=== PATIENT | male | born 1990 | race African-American/Black ===

== ENCOUNTER 2025-05-07 12:56 | Outpatient (REF) | payer OTHER, SELFPAY ==
[2025-05-07 15:11] LABS: Hematocrit 44.3 % (42.0-52.0); Hemoglobin 14.5 g/dl (14.0-18.0); Mean Corpuscular HGB Conc 32.7 g/dl (31.0-36.0); Mean Corpuscular Hemoglobin 27.2 pg (27.0-33.0); Mean Corpuscular Volume 83.0 fL (80.0-98.0); NRBC Abs Auto 0.000 X10*3/uL (0.0-0.012); NRBC Pct Auto 0.0 /100WBC (0.0-0.2); Platelet Count 272 X10*3/uL (160-400); Red Blood Count 5.34 X10*6/uL (4.60-5.80); White Blood Count 5.5 X10*3/uL (4.8-10.8)
[2025-05-07 15:59] LABS: Alanine Aminotransferase 46 U/L (0-40); Albumin Level 5.0 g/dL (3.5-5.0); Alkaline Phosphatase 122 U/L (39-117); Anion Gap 12 (12-20); Aspartate Amino Transferase 33 U/L (5-37); Blood Urea Nitrogen 10 mg/dL (9-16); Calcium 9.2 mg/dL (8.4-10.2); Carbon Dioxide 25 mmol/L (22-29); Chloride 108 mmol/L (96-108); Cholesterol 231 mg/dL (<200); Estimated Glomerular Filt Rate > 60; HDL Cholesterol 35 mg/dL (>40); Potassium 4.1 mmol/L (3.3-5.1); Sodium 141 mmol/L (135-145); Total Protein 8.1 g/dL (6.5-8.0); Triglycerides 125 mg/dL (<150)
== END 2025-05-07 12:57 | disposition home or self-care (01) ==
LOC: HO.LAB 12:56
PROVIDERS: PCP Internal Medicine; Visit Provider Internal Medicine
DX: Z00.00 Encounter for general adult medical examination without abnormal findings (principal); K21.9 Gastro-esophageal reflux disease without esophagitis; G43.909 Migraine, unspecified, not intractable, without status migrainosus; L72.3 Sebaceous cyst; I10 Essential (primary) hypertension; R53.82 Chronic fatigue, unspecified
CPT/HCPCS: 36415; 80053; 80061; 82306; 83036; 84443; 85027

== ENCOUNTER 2025-05-07 12:56 | Outpatient (AMB) | payer OTHER, SELFPAY ==
--- NOTE | 2025-05-07 13:00 | A.OFFPC_ITS ---
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 Allergies No Known Allergies Allergy (Verified 05/07/25 13:03) Medication List - Last Reconciled 05/07/25 by Zora Deluca MD acetaminophen (Tylenol) 325 mg PO Q6H PRN acetaminophen-caffeine 500-65 mg (Excedrin Tension Headache) 1 tab PO Q12H PRN Tobacco use date assessed: 05/07/25 Dental Screening Dental Screen Date: 05/07/25 Did you have a dental visit in the last 12 months?: No Did you have a dental problem in the last 6 months where you did not have access to dental care?: No Was dental information given to patient?: Patient declined HPI HPI Comments History of Present Illness Details The patient is a 34-year-old individual presenting to count includes the [facility] care after recently moving to [place]. The patient reports headaches, which the patient manages with Excedrin, and notes high caffeine consumption. The patient also reports significant fatigue and uses energy drinks. There is a history of thyroid-stimulating hormone (TSH) levels being at the lower limits of normal, which then dropped below normal over the past two years. A thyroid ultrasound showed normal structure and blood supply, but T3 and T4 levels were not checked. Since moving to the about five years ago, the patient has experienced recurrent cysts under the arms, which the patient attributes to certain deodorants. The patient has a draining lesion currently, raising concerns about a possible fistula. This issue began after a rapid 60-pound weight gain upon arrival in the . The patient also reports a history of acne during youth and had bumps in the groin area in the past that have since resolved. The patient's had a positive HPV test after an abnormal Pap smear, despite having received the quadrivalent HPV vaccine in the past. The patient has never been vaccinated for HPV and is interested in receiving it due to this exposure, although the patient denies any related symptoms such as warts or lesions. The patient experiences acid reflux and bloating. Family history is significant for a father with hypertension and prediabetes, both of which are controlled with lifestyle modifications. There is no family history of colon, prostate, or lung cancer. [facility] Social History Housing: House Patient Tobacco Use Status: Never used Tobacco e-Cigarette/Vaping Use: Never Used service: No Current occupational status: unemployed Questionnaire PHQ-9 Over the last 2 weeks, how often have you been bothered by any of the following problems? 1. Little interest or pleasure in doing things: not at all 2. Feeling down, depressed, or hopeless: not at all 3. Trouble falling or staying asleep, or sleeping too much: not at all 4. Feeling tired or having little energy: not at all 5. Poor appetite or overeating: not at all 6. Feeling bad about yourself - or that you are a failure or have let yourself or your family down: not at all 7. Trouble concentrating on things, such as reading the newspaper or watching television: not at all 8. Moving or speaking so slowly that other people could have noticed. Or the opposite - being so fidgety or restless that you have been moving around a lot more than usual: not at all 9. Thoughts that you would be better off or of hurting yourself in some way: not at all Total score: 0 Source: Developed by Drs. Jose Morley, Jailene Cid, Shai Caicedo and colleagues, with an educational stephen from [employer]. Thrive Questionnaire Date Thrive assessed: 04/30/25 I am a: Patient What is your living situation today?: I have a steady place to live Within the past 12 months, did the food you bought not last and you didn't have the money to get more?: Never true Within the past 12 months, did you worry whether your food would run out before you got money to buy more?: Never true Do you have trouble paying for medicines?: No Do you have trouble getting transportation to medical appointments?: No Do you have trouble paying your heating and electricity bill?: No Do you have trouble taking care of your child, family member or friend?: No Do you have trouble with day-to-day activities such as bathing, preparing meals, shopping, managing finances, etc.?: No Are you currently unemployed and looking for a job?: No Are you interested in more education?: No Please select the resources that you would like help with: None Currently or been in a relationship where the following occur: No concerns reported THRIVE Score: 0 AUDIT C Alcohol Use Questionnaire (AUDIT-C) 1. How often do you have a drink containing alcohol?: Monthly or less 2. How many drinks containing alcohol do you have on a typical day when you are drinking?: 1 or 2 3. How often do you have six or more drinks on one occasion?: Never Total Score: 1 MANUEL-7 AMB Questionnaire MANUEL-7 Date MANUEL - 7 assessed: 05/07/25 Feeling nervous, anxious, or on edge: 0 = Not at all Not being able to stop or control worryin = Not at all Worrying too much about different things: 0 = Not at all Trouble relaxin = Nearly every day Being so restless that it is hard to sit still: 3 = Nearly every day Becoming easily annoyed or irritable: 1 = Several days Feeling afraid as if something awful might happen: 0 = Not at all Total MANUEL-7 score (0-4 normal; 5-9 mild; 10-14 moderate; 15-21 severe): 7 Source: Developed by Drs. Jose Morley, Jailene Cid, Shai Caicedo and colleagues, with an educational stephen from [employer]. Review of Systems Const Details: Positives besides what was mentioned in HPI are in BOLD Constitutional: No Weight Change, No Fever, No Chills, No Night Sweats, No Fatigue, No Malaise ENT/Mouth: No Hearing Changes, No Ear Pain, No Nasal Congestion, No Sinus Pain, No Hoarseness, No sore throat, No Rhinorrhea, No Swallowing Difficulty Eyes: No Eye Pain, No Swelling, No Redness, No Foreign Body, No Discharge, No Vision Changes Cardiovascular: No Chest Pain, No SOB, No PND, No Dyspnea on Exertion, No Orthopnea, No Claudication, No Edema, No Palpitations Respiratory: No Cough, No Sputum, No Wheezing, No Smoke Exposure, No Dyspnea Gastrointestinal: No Nausea, No Vomiting, No Diarrhea, No Constipation, No Pain, No Heartburn, No Anorexia, No Dysphagia, No Hematochezia, No Melena, No Flatulence, No Jaundice Genitourinary: No Dysmenorrhea, No DUB, No Dyspareunia, No Dysuria, No Urinary Frequency, No Hematuria, No Urinary Incontinence, No Urgency, No Flank Pain, No Urinary Flow Changes, No Hesitancy Musculoskeletal: No Arthralgias, No Myalgias, No Joint Swelling, No Joint Stiffness, No Back Pain, No Neck Pain, No Injury History Skin: No Skin Lesions, No Pruritis, No Hair Changes, No Breast/Skin Changes, No Nipple Discharge Neuro: No Weakness, No Numbness, No Paresthesias, No Loss of Consciousness, No Syncope, No Dizziness, No Headache, No Coordination Changes, No Recent Falls Psych: No Anxiety/Panic, No Depression, No Insomnia, No Personality Changes, No Delusions, No Rumination, No SI/HI/AH/VH, No Social Issues, No Memory Changes, No Violence/Abuse Hx., No Eating Concerns Heme/Lymph: No Bruising, No Bleeding, No Transfusions History, No Lymphadenopathy Endocrine: No Polyuria, No Polydipsia, No Temperature Intolerance Physical exam (Primary Care) Vital Signs: Last Vital Signs Pulse 91 05/07/25 13:07 Resp 18 05/07/25 13:07 BP 140/82 H 05/07/25 13:07 Pulse Ox 99 05/07/25 13:07 Oxygen Delivery Method Room Air 05/07/25 13:07 BMI result Body Mass Index 28.6 Tobacco/Smoking Status: Tobacco use Status Tobacco use date assessed 05/07/25 05/07/25 13:09 Patient Tobacco Use Status Never used Tobacco 05/07/25 13:09 e-Cigarette/Vaping Use Never Used 05/07/25 13:09 PHQ-9: PHQ-9 Score PHQ-9: Total score 0 05/07/25 15:44 Thrive Assessment: Date of Thrive Assessment Date Thrive assessed 04/30/25 05/07/25 13:09 Currently or been in a relationship where the following occur: No concerns reported Const Other: Pertinent findings are in BOLD GENERAL APPEARANCE NAD, activity normal for age, well developed/ well nourished, no cyanosis, pallor, or diaphoresis. EYES lids/conjunctiva normal. EARS/NOSE/THROAT Mucous membranes moist, nares normal, lips/teeth normal uvula midline without oral pharyngeal erythema, exudate or swelling TMs normal bilaterally. No lymphangitis/lymphedema. HEAD/NECK normocephalic atraumatic, no facial trauma, neck is supple. RESPIRATORY respiratory effort normal, speaks in full sentences, no tripod position, no accessory muscle use. Lungs clear to auscultation without rhonchi, wheezes, rales CARDIAC Regular rate and rhythm, no edema. ABDOMINAL Soft, ND/NT. No evidence of fluid wave. No pulsatile masses on exam, rebound tenderness, Michelle sign or pain over Mcburney's point. MUSCLES/EXTREMITIES No abnormal range of motion, no swelling. SKIN Warm, pink and dry. No rashes, dermatoses, petechiae or lesions. Open lesion under the patient right armpit. NEUROLOGICAL Speech is clear and appropriate. Normal level of consciousness. Gait and coordination are normal. 5/5 strength in all extremities. PSYCH Normal mood and affect. Judgement/competence is appropriate Coding Level of Care Code New Pt Level 4 (01931) New Pt Prev Care 18-39yr(05116 Diagnoses Healthcare maintenance Z00.00 Migraine without status migrainosus, not intractable, unspecified migraine type G43.909 Migraine type: unspecified Status migrainosus presence: without status migrainosus Intractability: not intractable Sebaceous cyst of axilla L72.3 Primary hypertension I10 Hypertension type: primary hypertension Chronic fatigue R53.82 Fatigue type: chronic, unspecified Time Spent (min) 45 Assessment & Plan Assessment & Plan (1) Healthcare maintenance: Code(s): Z00.00 - Encounter for general adult medical examination without abnormal findings Category: Medical Plan: CBC, CMP, Lipid panel, A1C, TSH w T4, vit D. Ordered. Shingles 2 doses when >50 yo. At 50. COVID: two doses. Completed. Pneumococcal: >50 yo. 18-49 with CKD, lung disease, weakened immune system, Heart disease, DM, cochlear implant. At 50. Flu vaccine: Completed in 2024. Tdap: every 10 years. completed in 2021. Next due in 2031. Colonoscopy: 45-75. At 45. AAA: 65 -75. NI as never smoked. CT lun - 80. NI as never smoked. PSA: 50 -70 every two years. At 50. HIV: Ordered. HCV: Ordered. (2) Migraine: Code(s): G43.909 - Migraine, unspecified, not intractable, without status migrainosus Category: Medical Qualifiers: Migraine type: unspecified Status migrainosus presence: without status migrainosus Intractability: not intractable Qualified Code(s): G43.909 - Migraine, unspecified, not intractable, without status migrainosus Plan: - Headaches managed by excedrin as needed. - Advised on lifestyle factors. (3) Sebaceous cyst of axilla: Code(s): L72.3 - Sebaceous cyst Category: Medical Plan: - The patient's axillary cysts are suspected to be a condition similar to hidradenitis suppurativa (HS), potentially linked to gut health and diet. - A referral to Dermatology will be placed for definitive diagnosis and management. - Recommended application of [id number] triple antibiotic ointment to the draining lesion and to keep it covered, allowing it to heal by secondary intention. - Advised on weight loss with dietary modifications to see if it would affect the lesion. - Advised on specific type deodorant to be used to help with managing the cyst. (4) HTN (hypertension): Code(s): I10 - Essential (primary) hypertension Category: Medical Qualifiers: Hypertension type: primary hypertension Qualified Code(s): I10 - Essential (primary) hypertension Plan: - The patient's blood pressure of 140/82 mmHg is considered borderline high and is likely multifactorial, related to stress, lack of sleep, and high caffeine intake. - Will not treat pharmacologically at this time and will focus on lifestyle modifications, including diet and weight loss, which are expected to improve blood pressure. - Plan to recheck blood pressure at a follow-up visit in three months. (5) Fatigue: Code(s): R53.83 - Other fatigue Category: Medical Qualifiers: Fatigue type: chronic, unspecified Qualified Code(s): R53.82 - Chronic fatigue, unspecified Plan: - Given the history of TSH levels dropping below normal and persistent fatigue, labs will be ordered to re-evaluate thyroid function. - Advised that dietary changes, including eliminating dairy, gluten, red meat, and sugar, may improve energy levels. Plan I discussed with the patient that the recurrent axillary cysts are likely a condition similar to hidradenitis suppurativa, which I believe is connected to diet and gut health. I recommended a trial of an elimination diet, specifically avoiding dairy, gluten, red meat, and sugars, explaining that this may improve the skin condition, fatigue, and aid in weight loss. I will place a referral to dermatology for a formal diagnosis and management. We addressed the borderline high blood pressure, attributing it to situational stress and caffeine, and agreed to monitor it with a recheck in three months rather than starting medication. I also recommended the patient obtain the HPV vaccine given the partner's status and will provide a script if needed. We will be obtaining labs today to assess thyroid function, and the patient will follow up in three months. Orders: Orders Hemoglobin A1c Today Z00.00 - Encounter for general adult medical examination without abnormal findings TSH reflex Free T4 Today Z00.00 - Encounter for general adult medical examination without abnormal findings Complete Blood Count no Diff Today Z00.00 - Encounter for general adult medical examination without abnormal findings Comprehensive Met. Panel Today Z00.00 - Encounter for general adult medical examination without abnormal findings Lipid Panel Today Z00.00 - Encounter for general adult medical examination without abnormal findings Vitamin D 25-OH Total Today Z00.00 - Encounter for general adult medical examination without abnormal findings Referrals Dermatology Referral Z00.00 - Encounter for general adult medical examination without abnormal findings
[2025-05-07 13:07] VITALS: BP 140/82; PULSE 91; RESP 18; O2SAT 99; BMI 28.6
--- OUTSIDE RECORDS SUMMARY | 2025-05-07 15:58 | XMS_ITS | Clinical Summary ---
Author Organization [facility] Address [address] [place] [id number] Phone Care Team Providers Care Garbage Man Name Role Phone Lance Canela Bam Primary Care Provider [phone] Allergies No known active allergies Medications No known medications Active Problems Problem Noted Date Diagnosed Date Obesity (BMI 30-39.9) 12/27/2023 Assessment & Plan (12/27/2023 5:54 PM EDT): Experienced a weight gain of 17 pounds since last year, which attribute to the move and lifestyle changes. Currently, his weight is 207 lb. Recently he moved to [place]. He used to binge-drink alcohol with friends on weekends once a month but has stopped this behavior since moving. Ordered comprehensive metabolic panel. Recommend a follow-up visit if weight continues to increase or if the patient experiences any related health issues. Annual physical exam 12/27/2023 Assessment & Plan (12/27/2023 5:53 PM EDT): Screening labs: Due for blood test. Ordered compressive metabolic panel. Elevated liver function tests 12/27/2023 Assessment & Plan (12/27/2023 5:54 PM EDT): Last year's blood work revealed a slightly elevated liver function test, possibly related to weight gain or alcohol consumption. Reviewed and discussed previous labs. Encouraged the patient to maintain a healthy weight and limit alcohol consumption. If liver function tests remain elevated or worsen, consider further evaluation and potential treatment. Low thyroid stimulating hormone (TSH) level 12/10 Assessment & Plan (12/27/2023 6:07 PM EDT): Last year's blood work revealed a slightly low thyroid level. Reviewed and discussed previous labs. Ordered thyroid levels. If thyroid levels remain low or worsen, consider further evaluation and potential treatment. Overweight (BMI 25.0-29.9) 11/22/2022 Assessment & Plan (11/23/2022 4:44 AM EDT): Blood pressure and pulse rate in normal range. Will check comprehensive metabolic panel, lipid panel, and TSH. Immunizations Immunization Administration Dates Next Due Hepatitis A, Adult 07/15/2021 Hepatitis B Adult 07/15/2021 Influenza Quadrivalent Preservative Free IM 110 07/2021 Influenza Recombinant Wei valent Preservative Free IM 07/07/2021 MMR 08/19/2021,07/22/2021 Tdap 07/22/2021 Family History Medical History Relation Comments Diabetes Father Hypertension Father Glaucoma Neg Hx Macular degeneration Neg Hx Relation Status Comments Father Social History Tobacco Use Types Packs/Day Years Used Date Smoking Tobacco: Never Smokeless Tobacco: Never Alcohol Use Standard Drinks/Week Comments Yes 0 (1 standard drink = 0.6 oz pur e alcohol) Education Answer Date Recorded Are you interested in more education? Not on abner e 10/08/2022 Are you concerned about learning? Not on file 10/08/2022 No 10/08/2022 No 10/08/2022 Digital Access Answer Date Recorded No 11/05/2022 No 11/05/2022 No 11/05/2022 Reliable internet access at home? Not on file 11/05/2022 Device with a working camera? Not on file Intimate Partner Violence Answer Date R ecorded Denied Basic Needs Not on file 12/27/2023 In the past 12 months have y ou been in a relationship with a person who hurts, threatens, or tries to control you? No 12/27/2023 Worried food would run out Not on file 12/26 In the past 12 months have y ou been in a relationship with a person who hurts, threatens, or tries to control you? No 12/27/2023 Sex and Gender Information Value Date Recorded Sex Assigned at Male 07/14/2021 4:11 AM EST Legal Sex Male 10:22 AM EST Gender Identity Male 07/14/2021 4:11 AM EST Sexual Orientation Straight 07/14/2021 4: 11 AM EST Last Filed Vital Signs Vital Sign Reading Time Taken Comments Blood Pressure 114/72 12/27/2023 12:43 PM EDT Pulse 68 12/27/2023 12:43 PM EDT Temperature - - Respiratory Rate - - Oxygen Saturation - - Inhaled Oxygen Concentration - - Weight 93.9 kg (207 lb) 12/27/2023 12:43 PM EDT Height 174.6 cm (5' 8.75 ) 12/27/2023 12:43 PM E DT Body Mass Index 30.79 12/27/2023 12:43 PM EDT Plan of Treatment Health Maintenance Due Date Last Done Comments DEPRESSION SCREENING 12/26/2024 12/27/2023 INFLUENZA VACCINE (#1) 2025 , 04/13/2022, 07/07/2021 COVID-19 VACCINE ( season) 2025 03/07/2023, 04/14/2022, 07/07/2021, Additional history exists Adult Td,Tdap Booster 07/22/2031 07/22/2021 HEPATITIS C SCREENING Completed 07/12/2021 HIV ONE-TIME SCREENING (18-65 YEARS) Completed 07/12/2021 HEPATITIS A VACCINES Aged Out 07/15/2021 No long er eligible based on patient's age to complete this topic SMOKING STATUS SCREENING (Once After 26 Yrs) Completed 10/13/2022 HIB VACCINES Aged Out No longer eligi ble based on patient's age to complete this topic MENINGOCOCCAL VACCINES (ACWY) Aged Out No longer eligible based on patient's age to complete this topic MENINGOCOCCAL VACCINES (B) Aged Out N o longer eligible based on patient's age to complete this topic PNEUMOCOCCAL VACCINES (0-49 years) Aged Out No longer eligible based on patient's age to complete this topic Medical Devices Not on file Procedures Procedure Name Priority Date/Time Associated Diagnosis Comments HEP C ANTIBODY SOURCE Routine 07/12/2021 5:53 PM EST Penile lesion from Last 3 Months or Most Recently Relevant to Health Maintenance Results * Hep C Antibody Source (07/12/2021 5:53 PM EST) Hepatitis C Virus Ab Source Nonreactive NonReactive [facility] 07/12/2021 5:53 PM EST us Lance Canela DO LAB BLOOD BKR ORDERABLES Final Result [facility] [address] [place] [address], [facility] [phone] from Last 3 Months or Most Recently Relevant to Health Maintenance Insurance [facility] NON [facility] PCP [facility] Care Teams Garbage Man Relationship Specialty Start Date End Date Lance Canela DO [address] [address] [email or web address] PCP - General Family Medicine 09/15/22 Additional Source Comments The information contained in this document represents components of the legal health record. It is not the complete legal health record.[facility]
== END 2025-05-07 13:57 | disposition home or self-care (01) ==
LOC: HO.HMCH 12:57
PROVIDERS: PCP Internal Medicine; Visit Provider Internal Medicine
DX: G43.909 Migraine, unspecified, not intractable, without status migrainosus (principal); L72.3 Sebaceous cyst; I10 Essential (primary) hypertension; R53.82 Chronic fatigue, unspecified